=== PATIENT | female | born 1960 | race Caucasian/White ===

== ENCOUNTER 2018-12-24 11:42 | Emergency (ER) | payer BC ==
[~2018-12-24] VITALS: Ht 152.4 cm; Wt 91.8 kg
[2018-12-24] MEDS ORDERED: BISO10TA13 (12:08)
[2018-12-24] MEDS ORDERED: SERT-138 (12:08)
[2018-12-24] MEDS ORDERED: OMEP-221 (12:08)
[2018-12-24] MEDS ORDERED: ATOR40TA75 (12:08)
[2018-12-24] MEDS ORDERED: ENBR50IN6 (12:08)
[2018-12-24] MEDS ORDERED: NAPR-855 (12:08)
[2018-12-24] MEDS ORDERED: HYDR12CA (12:08)
[2018-12-24] MEDS ORDERED: ACETAMINOPHEN TAB 650MG DOSE (2X325MG) PO ONE (13:15)
[2018-12-24] MEDS ORDERED: FLUORESCEIN OPHTH 1 MG STRIP OS ONE (13:15)
[2018-12-24] MEDS ORDERED: PROPARACAINE 0.5% OPHTH SOL 15ML OS ONE (13:15)
[2018-12-24 13:34] LABS: BASO # 0.1 10^3/uL (0.0-0.2); BASO % 0.5 % (0.0-1.0); EOS # 0.6 10^3/uL (0.0-0.5); EOS % 5.6 % (0.0-3.0); HEMATOCRIT 47.4 % (36.0-47.0); HEMOGLOBIN 15.6 g/dl (12.0-15.5); LYMPH # 4.1 10^3/uL (1.5-5.0); LYMPH % 36.6 % (24.0-44.0); MEAN CORPUSCULAR HEMOGLOBIN 29.2 pg (27.0-33.0); MEAN CORPUSCULAR HGB CONC 32.9 g/dl (32.0-36.5); MEAN CORPUSCULAR VOLUME 88.8 fl (80.0-96.0); MONO # 0.6 10^3/uL (0.0-0.8); MONO % 5.7 % (0.0-5.0); NEUTROPHILS # 5.7 10^3/uL (1.5-8.5); PLATELET COUNT, AUTOMATED 209 10^3/uL (150-450); RED BLOOD COUNT 5.34 10^6/uL (4.00-5.40); WHITE BLOOD COUNT 11.2 10^3/uL (4.0-10.0)
[2018-12-24] MEDS ORDERED: ISOVUE-370 76% 100ML VIAL (Q9967) As Ordered ONE (13:36)
--- NOTE | 2018-12-24 14:03 | REP ---
Clinical: Visual disturbances. Technique: Axial contrast enhanced images through the orbits with coronal and sagittal re-formations using 100 ml Isovue 370 intravenous contrast material. Findings: The bilateral orbits including globes and intraconal contents are symmetric and normal. The ocular muscles are symmetric and normal. Neurovascular bundles are normal. Surrounding and intraconal fat is clear and without inflammatory changes. Osseous structures are intact and normal. Visualized sinuses are clear. Impression: Normal contrast enhanced CT of the orbits. Electronically Signed by Buster Mendez MD 12/24/2018 01:54 P
[2018-12-24 14:05] LABS: ERYTHROCYTE SEDIMENTATION RATE 5 mm/hr (0-30)
[2018-12-24 14:27] VITALS: BP 127/72
== END 2018-12-24 15:12 | disposition home or self-care (01) ==
LOC: M ED 11:42
DX: R60.0 Localized edema (principal); H01.9 Unspecified inflammation of eyelid; H53.9 Unspecified visual disturbance; H04.129 Dry eye syndrome of unspecified lacrimal gland; L40.50 Arthropathic psoriasis, unspecified; Z88.8 Allergy status to other drugs, medicaments and biological substances; Z79.899 Other long term (current) drug therapy
CPT/HCPCS: 70481; 80047; 85025; 85652; 86140; 99284; Q9967